=== PATIENT | male | born 1970 | race Caucasian/White ===

== ENCOUNTER 2024-12-12 10:45 | Emergency (ER) | payer OTHER ==
[~2024-12-12] VITALS: Ht 175.3 cm; Wt 71.7 kg
[2024-12-12] MEDS ORDERED: CEPH500T PO (11:10)
[2024-12-12] MEDS ORDERED: CEPHALEXIN MONOHYDRATE 500 MG CAPSULE PO ONE (11:11)
[2024-12-12] MEDS ORDERED: TDAP [DIPH/PERTUSSIS/TET] 0.5 ML VIAL IM ONE ×2 (11:12→11:30)
[2024-12-12] MEDS: CEPHALEXIN MONOHYDRATE 500 MG CAPSULE PO ONE (11:17)
[2024-12-12 11:20] VITALS: BP 120/75; TEMP 98.2; O2SAT 97
== END 2024-12-12 11:20 | disposition home or self-care (01) ==
LOC: ER 10:57
DX: S61.332A Puncture wound without foreign body of right middle finger with damage to nail, initial encounter (principal); W27.0XXA Contact with workbench tool, initial encounter; Y93.89 Activity, other specified; Y92.89 Other specified places as the place of occurrence of the external cause; Y99.8 Other external cause status
CPT/HCPCS: 99283; 90471; 90715; A6403